=== PATIENT | female | born 1965 | race Caucasian/White ===

== ENCOUNTER → 2017-11-26 | Outpatient (REF) | payer OTHER ==
[2017-11-26 20:50] LABS: FERRITIN 66 NG/ML (8-252); IRON (FE) 107 UG/DL (50-170); PERCENT SATURATION 31.1 % (13.2-45.0); TOTAL IRON BINDING CAPACITY 344 UG/DL (250-450); TOTAL PROTEIN 7.4 GM/DL (6.4-8.2)
[2017-11-26 20:51] LABS: VITAMIN B12 LEVEL 374 PG/ML (247-911)
[2017-11-26 21:03] LABS: SLIDE REVIEW Report; SOURCE PERIPHERAL SMEAR
[2017-11-26 21:04] LABS: REASON FOR REVIEW ANEMIA / RBC MORPH
[2017-11-27 11:34] LABS: ALBUMIN 4.57 GM/DL (3.29-5.55); ALBUMIN % 61.7 % (55.8-66.1); ALPHA-1-GLOBULIN % 4.2 % (2.9-4.9); ALPHA-1-GLOBULINS 0.31 GM/DL (0.17-0.41); ALPHA-2-GLOBULINS 0.81 GM/DL (0.42-0.99); ALPHA-2-GLOBULINS % 10.9 % (7.1-11.8); BETA-1-GLOBULINS 0.42 GM/DL (0.28-0.60); BETA-1-GLOBULINS % 5.7 % (4.7-7.2); BETA-2-GLOBULINS 0.36 GM/DL (0.19-0.55); BETA-2-GLOBULINS % 4.8 % (3.2-6.5); GAMMA GLOBULIN % 12.7 % (11.1-18.8); GAMMA GLOBULINS 0.94 GM/DL (0.65-1.58)
[2017-11-28 08:18] LABS: HAPTOGLOBIN 160 mg/dL (34-200)
== END ==
LOC: M LAB REF 19:00
DX: D64.9 Anemia, unspecified (principal)
CPT/HCPCS: 83010